=== PATIENT | male | born 1985 | race Two or more races ===

== ENCOUNTER 2017-07-21 07:50 | Emergency (ER) | payer BC ==
[~2017-07-21] VITALS: Ht 167.6 cm; Wt 113.4 kg
[2017-07-21 07:54] VITALS: BP 129/75
[2017-07-21] MEDS ORDERED: ACETAMINOPHEN ES 500 MG TABLET ONE (08:10)
[2017-07-21] MEDS ORDERED: ACETAMINOPHEN ES 500 MG TABLET PO ONE (08:30)
--- NOTE | 2017-07-21 08:38 | NUR ---
CALLED LAB FOR TO PICK SPECIMEN
== END 2017-07-21 09:44 | disposition home or self-care (01) ==
LOC: ER 07:52
DX: J40 Bronchitis, not specified as acute or chronic (principal); F10.10 Alcohol abuse, uncomplicated
CPT/HCPCS: 71010; 87804; 99285; A4606; Z7610; 87400